=== PATIENT | female | born 1995 | race Caucasian/White ===

== ENCOUNTER → 2024-12-30 11:04 | Outpatient (BNVA) | payer BC, SELFPAY | PROVIDERS: PCP Nurse Practitioner Family; Referring Provider Nurse Practitioner Family; Visit Provider Internal Medicine | DX: L83 Acanthosis nigricans (principal); R63.5 Abnormal weight gain; E28.2 Polycystic ovarian syndrome; E24.9 Cushing's syndrome, unspecified | CPT/HCPCS: 36415; 83525; 84305; 84439; 84443 ==

== ENCOUNTER → 2025-01-17 10:11 | Outpatient (BNVA) | payer BC, SELFPAY | PROVIDERS: PCP Nurse Practitioner Family; Visit Provider Internal Medicine | DX: L83 Acanthosis nigricans (principal); R63.5 Abnormal weight gain; E28.2 Polycystic ovarian syndrome; E24.9 Cushing's syndrome, unspecified | CPT/HCPCS: 82530; 82570 ==